=== PATIENT | male | born 1950 | race Caucasian/White ===

== ENCOUNTER → 2019-06-22 | Outpatient (REF) | payer MEDICARE, OTHER ==
[~2019-06-22] MED LIST: ASPI-1 PO; CLOP75TA2 PO; METF500T13 PO; RAMI1CAP24 PO; ZOCO20TA PO
== END ==
LOC: M LAB REF 16:19
PROVIDERS: ATTEND Nurse Practitioner Family
DX: B35.1 Tinea unguium (principal)

== ENCOUNTER → 2019-09-29 | Outpatient (CLI) | payer MEDICARE, OTHER ==
--- NOTE | 2019-09-29 12:37 | REP ---
Thoracic spine five views: There are no comparisons. Vertebral body heights and alignment are normal. There is degenerative disc disease throughout the thoracic spine. There is demineralization. The pedicles are unremarkable. Impression: Degenerative disc disease throughout the thoracic spine. Demineralization. Electronically Signed by Real Mack MD 09/29/2019 12:29 P
== END ==
LOC: M WUC 10:46
PROVIDERS: ATTEND Nurse Practitioner Adult Health
DX: M51.34 Other intervertebral disc degeneration, thoracic region (principal)

== ENCOUNTER 2020-11-21 21:27 | Emergency (ER) | payer MEDICARE, OTHER ==
[~2020-11-21] VITALS: Ht 182.9 cm; Wt 86.4 kg
[2020-11-21] MEDS ORDERED: ONDANSETRON 4MG/2ML VIAL IV ONE (22:30)
[2020-11-21] MEDS ORDERED: HYDROMORPHONE HCL 0.5 MG/ 0.5 ML SYRINGE (J1170 PER 1) IV PRN ×2 (22:30→23:10)
[2020-11-21] MEDS ORDERED: NS 1,000 ML IV ONE (22:30)
[2020-11-21 22:53] LABS: BASO # 0.1 10^3/uL (0.0-0.2); BASO % 0.3 % (0.0-1.0); EOS % 0.2 % (0.0-3.0); HEMATOCRIT 41.9 % (42.0-52.0); HEMOGLOBIN 13.3 g/dl (13.5-17.5); LYMPH # 0.9 10^3/uL (1.5-5.0); LYMPH % 5.7 % (24.0-44.0); MEAN CORPUSCULAR HEMOGLOBIN 27.6 pg (27.0-33.0); MEAN CORPUSCULAR HGB CONC 31.7 g/dl (32.0-36.5); MEAN CORPUSCULAR VOLUME 86.9 fl (80.0-96.0); NEUTROPHILS # 14.3 10^3/uL (1.5-8.5); NEUTROPHILS % 87.3 % (36.0-66.0); PLATELET COUNT, AUTOMATED 195 10^3/uL (150-450); RED BLOOD COUNT 4.82 10^6/uL (4.30-6.10); WHITE BLOOD COUNT 16.4 10^3/uL (4.0-10.0)
[2020-11-21 23:31] LABS: ALBUMIN 3.8 GM/DL (3.2-5.2); BILIRUBIN,DIRECT 0.2 MG/DL (0.0-0.2); BILIRUBIN,TOTAL 0.8 MG/DL (0.2-1.0); CALCIUM LEVEL 9.4 MG/DL (8.8-10.2); CREATININE FOR GFR 1.51 MG/DL (0.70-1.30); GLOMERULAR FILTRATION RATE 48.9 (>42); POTASSIUM SERUM 3.7 MEQ/L (3.5-5.1); TOTAL PROTEIN 7.5 GM/DL (6.4-8.2)
--- NOTE | 2020-11-22 00:21 | REPVR ---
PROCEDURE INFORMATION: Exam: CT Abdomen And Pelvis Without Contrast Exam date and time: 11/21/2020 11:09 PM Age: 70 years old Clinical indication: Abdominal pain; Flank; Left; Additional info: Flank pain TECHNIQUE: Imaging protocol: Computed tomography of the abdomen and pelvis without contrast. Radiation optimization: All CT scans at this facility use at least one of these dose optimization techniques: automated exposure control; mA and/or kV adjustment per patient size (includes targeted exams where dose is matched to clinical indication); or iterative reconstruction. COMPARISON: CT ABD PELVIS W/O CONTRAST 12/13/2014 8:02 AM FINDINGS: Pleural spaces: Small right pleural effusion. Mediastinal space: Small hiatal hernia. Liver: Normal. No mass. Gallbladder and bile ducts: Normal. No calcified stones. No ductal dilation. Pancreas: Normal. No ductal dilation. Spleen: Normal. No splenomegaly. Adrenal glands: Normal. No mass. Kidneys and ureters: There is mild enlargement of the left kidney with pelviectasis and perinephric/peripelvic edema. Obstructing irregular 6 mm calculus at the left ureteropelvic junction. Distal left ureter is nondilated. No other urinary tract calculi. No hydronephrosis on the right. Stomach and bowel: Unremarkable. No obstruction. No mucosal thickening. Appendix: No evidence of appendicitis. Intraperitoneal space: Unremarkable. No free air. No significant fluid collection. Vasculature: Unremarkable. No abdominal aortic aneurysm. Lymph nodes: Unremarkable. No enlarged lymph nodes. Urinary bladder: Unremarkable as visualized. Reproductive: Unremarkable as visualized. Bones/joints: There are advanced degenerative changes in the spine and pelvis. Bilateral pars defects at L5-S1 with grade 1 anterolisthesis. Soft tissues: Unremarkable. IMPRESSION: 1. Obstructing 6 mm irregular calculus at the left ureteropelvic junction with pelvicaliectasis and perinephric/peripelvic edema. 2. Small right pleural effusion. 3. Small hiatal hernia. Electronically signed by: Rigoberto Loera On 11/22/2020 00:21:26 AM
[2020-11-22] MEDS ORDERED: cefTRIAXone SOD 1 GM in D5W MINI-BAG PLUS 50 ML IV ONE (00:50)
[2020-11-22] MEDS ORDERED: KETOROLAC 30 MG/ML 1ML VIAL IV ONE (00:50)
[2020-11-22] MEDS ORDERED: TAMSULOSIN 0.4 MG CAP PO ONE (00:50)
[2020-11-22] MEDS ORDERED: NS 500 ML IV ONE (00:55)
[2020-11-22] MEDS ORDERED: OXYCODONE/APAP 5MG/325MG(BULK FOR ED) 1 TABLET PO ONE (03:15)
[2020-11-22] MEDS ORDERED: KETO10TAB PO (03:15)
[2020-11-22] MEDS ORDERED: PERC5TAB12 PO (03:15)
[2020-11-22] MEDS ORDERED: FLOM0.4C39 PO (03:15)
[2020-11-22] MEDS ORDERED: CEFD1CAP8 PO (03:17)
[2020-11-22 03:38] VITALS: BP 135/66
[2020-11-24] MEDS ORDERED: CLIN150C15 PO (12:20)
--- NOTE | 2020-11-25 08:44 | ED PDOC ---
Post-Departure Follow-Up radiology report faxed to Juany Narayan MD November 25, 2020 08:44
== END 2020-11-22 03:39 | disposition home or self-care (01) ==
LOC: M ED 21:27
DX: N20.1 Calculus of ureter (principal); R82.81 Pyuria; I25.10 Atherosclerotic heart disease of native coronary artery without angina pectoris; E78.5 Hyperlipidemia, unspecified; Z95.5 Presence of coronary angioplasty implant and graft; Z96.0 Presence of urogenital implants; Z79.82 Long term (current) use of aspirin; Z79.84 Long term (current) use of oral hypoglycemic drugs; Z79.899 Other long term (current) drug therapy
CPT/HCPCS: 74176; 80048; 80076; 81001; 83690; 85025; 87088; 87186; 96361; 96365; 96375; 96376; 99284; J0696; J1170; J1885; J2405

== ENCOUNTER → 2020-12-12 | Outpatient (CLI) | payer MEDICARE, OTHER ==
[~2020-12-12] MED LIST changes: +CEFD1CAP8 PO; +CLIN150C15 PO; +FLOM0.4C39 PO; +KETO10TAB PO; +PERC5TAB12 PO
--- NOTE | 2020-12-12 14:04 | REP ---
INDICATION: POSTPROCEDURAL PNEUMOTHORAX COMPARISON: 12/13/2014 TECHNIQUE: PA and lateral. FINDINGS: The mediastinum and cardiac silhouette are normal. Prior sternotomy and CABG noted. The lung martinez are clear and without acute consolidation, effusion, or pneumothorax. The skeletal structures are intact and normal. IMPRESSION: No acute cardiopulmonary process. No pneumothorax. <Electronically signed by Pravin Enriquez > 12/12/20 1400
== END ==
LOC: M RAD 13:26
PROVIDERS: ATTEND Nurse Practitioner
DX: J95.811 Postprocedural pneumothorax (principal)

== ENCOUNTER 2023-10-16 10:11 | Outpatient (RCR) | payer MEDICARE, OTHER ==
[~2023-10-16 10:11] MED LIST changes: -CEFD1CAP8 PO; +CEFD1CAP9 PO; -CLIN150C15 PO; +CLIN150C17 PO; +SIMV-253 PO; -ZOCO20TA PO
== END 2023-10-18 | disposition home or self-care (01) ==
LOC: M ST 10:11
PROVIDERS: ATTEND Physician Assistant
DX: I69.320 Aphasia following cerebral infarction (principal)

== ENCOUNTER 2023-11-16 10:25 | Outpatient (RCR) | payer MEDICARE, OTHER | END 2023-11-17 | LOC: M ST 10:25 | PROVIDERS: ATTEND Physician Assistant | DX: I69.320 Aphasia following cerebral infarction (principal) ==

== ENCOUNTER 2023-12-17 08:52 | Outpatient (RCR) | payer MEDICARE, OTHER ==
[~2023-12-17 08:52] MED LIST changes: -RAMI1CAP24 PO; +RAMI5CAP60 PO
== END 2023-12-18 ==
LOC: M ST 08:52
PROVIDERS: ATTEND Physician Assistant
DX: I69.320 Aphasia following cerebral infarction (principal)

== ENCOUNTER 2024-01-15 09:02 | Outpatient (RCR) | payer MEDICARE, OTHER | END 2024-01-17 | LOC: M ST 09:02 | PROVIDERS: ATTEND Physician Assistant | DX: I69.320 Aphasia following cerebral infarction (principal) ==

== ENCOUNTER 2024-01-20 13:30 | Outpatient (RCR) | payer MEDICARE, OTHER | END 2024-02-17 | LOC: M ST 13:30 | PROVIDERS: ATTEND Physician Assistant | DX: I69.320 Aphasia following cerebral infarction (principal) ==

== ENCOUNTER 2024-03-01 08:53 | Outpatient (RCR) | payer MEDICARE, OTHER | END 2024-03-19 | LOC: M ST 08:53 | PROVIDERS: ATTEND Physician Assistant | DX: I63.9 Cerebral infarction, unspecified (principal) ==

== ENCOUNTER 2024-04-13 11:19 | Outpatient (RCR) | payer MEDICARE, OTHER | END 2024-04-18 | LOC: M ST 11:19 | PROVIDERS: ATTEND Physician Assistant | DX: I63.9 Cerebral infarction, unspecified (principal); R47.01 Aphasia ==

== ENCOUNTER 2024-05-02 12:30 | Outpatient (RCR) | payer MEDICARE, OTHER | END 2024-05-19 | LOC: M ST 12:30 | PROVIDERS: ATTEND Physician Assistant | DX: I69.320 Aphasia following cerebral infarction (principal) ==

== ENCOUNTER 2024-06-10 10:30 | Outpatient (RCR) | payer MEDICARE, OTHER | END 2024-06-18 23:59 | disposition home or self-care (01) | LOC: M ST 10:30 | PROVIDERS: ATTEND Physician Assistant | DX: I69.320 Aphasia following cerebral infarction (principal) ==

== ENCOUNTER 2024-07-05 14:30 | Outpatient (RCR) | payer MEDICARE, OTHER | END 2024-07-19 | LOC: M ST 14:30 | PROVIDERS: ATTEND Physician Assistant | DX: I69.320 Aphasia following cerebral infarction (principal) ==

== ENCOUNTER 2024-07-27 09:46 | Outpatient (RCR) | payer MEDICARE, OTHER | END 2024-08-19 | LOC: M ST 09:46 | PROVIDERS: ATTEND Physician Assistant | DX: I69.320 Aphasia following cerebral infarction (principal) ==